=== PATIENT | female | born 1955 | race Two or more races ===

== ENCOUNTER 2017-03-31 11:26 | Emergency (ER) | payer OTHER ==
[~2017-03-31] VITALS: Ht 147.3 cm; Wt 78.9 kg
[~2017-03-31 11:26] MED LIST: AMOX500C2 PO; HYDR200T4 PO; LEFL20TA PO; METF500T4 PO
--- NOTE | 2017-03-31 12:47 | NUR ---
DR CORONEL ON PHONE WITH OPTHO
--- NOTE | 2017-03-31 12:51 | NUR ---
PAGED DR ZULUAGA
--- NOTE | 2017-03-31 13:04 | NUR ---
DR CORONEL ON PHONE WITH DR ZULUAGA
[2017-03-31 13:30] VITALS: BP 132/80
--- NOTE | 2017-03-31 13:31 | NUR ---
Patient discharged to home in stable condition. Written and verbal after care instructions given. Patient verbalizes understanding of instruction.
--- NOTE | 2017-03-31 13:32 | NUR ---
PRESENTS SELF TO ED BLURRED VISSION. PATIENT ON CORRECTIVE LENSES, HOWEVER PT REPORTED HAVING DARK VISION WELL. MD CORONEL AT BS
== END 2017-03-31 13:32 | disposition home or self-care (01) ==
LOC: ER 11:28
DX: H54.0 Blindness, both eyes (principal); E11.9 Type 2 diabetes mellitus without complications; M06.9 Rheumatoid arthritis, unspecified
CPT/HCPCS: 99281; A4606; Z7610; Z7502

== ENCOUNTER → 2017-04-20 | Emergency (ER) | payer OTHER ==
[~2017-04-20] VITALS: Ht 154.9 cm; Wt 79.4 kg
[~2017-04-20] MED LIST changes: +KETOROLAC TROMETHAMINE INJ 30 MG/ML VIAL ONE; +KETOROLAC TROMETHAMINE INJ 60 MG/2 ML VIAL IM ONE
[2017-04-20 18:16] VITALS: BP 140/81
== END | disposition home or self-care (01) ==
LOC: ER 18:21
DX: S16.1XXA Strain of muscle, fascia and tendon at neck level, initial encounter (principal); M62.838 Other muscle spasm; R51 Headache; E11.9 Type 2 diabetes mellitus without complications; V43.52XA Car driver injured in collision with other type car in traffic accident, initial encounter; Y93.89 Activity, other specified; Y92.488 Other paved roadways as the place of occurrence of the external cause; Y99.8 Other external cause status
CPT/HCPCS: A4606; J1885; Z7610

== ENCOUNTER 2017-06-28 10:23 | Emergency (ER) | payer OTHER ==
[~2017-06-28] VITALS: Ht 152.4 cm; Wt 79.4 kg
[~2017-06-28 10:23] MED LIST changes: -KETOROLAC TROMETHAMINE INJ 30 MG/ML VIAL ONE; -KETOROLAC TROMETHAMINE INJ 60 MG/2 ML VIAL IM ONE
--- NOTE | 2017-06-28 10:24 | NUR ---
PRESENTS SELF TO ED DT CHEST PAIN, ACHING, PRESSURE LIKE PAIN, 5/10, NON RADIATING SINCE THIS AM. PATIENT IS AAO4. APPEARS IN NO APPARENT DISTRESS. RESPIRATION EVEN AND UNLABORED. SKIN IS WARM TO TOUCH AND NON DIAPHORETIC. AFEBRILE. VSS. GOWNED PT AND PLACED ON TELE MONITOR. VSS
--- NOTE | 2017-06-28 10:46 | NUR ---
IV ACCESSED TO LAC 20. BLOOD SAMPLE SENT
[2017-06-28 10:53] LABS: BASOPHILS % (AUTO) 0.3 % (0.0-2.0); EOSINOPHILS # (AUTO) 0.1 /CMM (0.0-0.7); EOSINOPHILS % (AUTO) 1.3 % (0.0-6.0); HEMATOCRIT 38 % (33-45); HEMOGLOBIN 12.6 g/dL (11.5-14.8); LYMPHOCYTES # (AUTO) 0.8 /CMM (0.8-4.8); LYMPHOCYTES % (AUTO) 14.7 % (20.0-44.0); MEAN CORPUSCULAR HEMOGLOBIN 29 PG (26.0-33.0); MEAN CORPUSCULAR HGB CONC 33 g/dl (31.0-36.0); MEAN CORPUSCULAR VOLUME 86 fL (82-100); MONOCYTES # (AUTO) 0.4 /CMM (0.1-1.30); MONOCYTES % (AUTO) 6.1 % (2.0-12.0); NEUTROPHILS # (AUTO) 4.5 /CMM (1.8-8.9); NEUTROPHILS % (AUTO) 77.6 % (43.0-81.0); PLATELET COUNT (AUTO) 153 /CMM (150-450); RDW COEFFICIENT OF VARIATION 13.5 (11.5-15.0); RED BLOOD CELL COUNT(AUTO) 4.37 MIL/uL (4.0-5.2); WHITE BLOOD COUNT (AUTO) 5.7 K/uL (4.3-11.0)
[2017-06-28 11:05] LABS: CALCIUM, SERUM 8.9 mg/dL (8.5-10.1); CARBON DIOXIDE 27 mmol/L (21-32); CHLORIDE 107 mmol/L (98-107); CREATININE 0.6 mg/dL (0.6-1.3); GLUCOSE 146 mg/dL (74-106); SODIUM SERUM 143 mmol/L (136-145); UREA NITROGEN, BLOOD 13 mg/dL (7-18)
[2017-06-28 11:08] LABS: INR 0.95 (0.87-1.13); PROTHROMBIN TIME 10.1 SECS (9.5-12.7)
[2017-06-28 11:14] LABS: TROPONIN I < 0.017 ng/mL (0.00-0.056)
[2017-06-28 12:05] VITALS: BP 120/79
--- NOTE | 2017-06-28 12:05 | NUR ---
Patient discharged to home in stable condition. Written and verbal after care instructions given. Patient verbalizes understanding of instruction.
--- NOTE | 2017-06-28 12:05 | NUR ---
IV removed. Catheter intact and site benign. Pressure and 4x4 applied to site. No bleeding noted.Patient discharged to home in stable condition. Written and verbal after care instructions given. Patient verbalizes understanding of instruction.
== END 2017-06-28 12:07 | disposition home or self-care (01) ==
LOC: ER 10:24
DX: F41.9 Anxiety disorder, unspecified (principal); E11.9 Type 2 diabetes mellitus without complications; I10 Essential (primary) hypertension; M06.9 Rheumatoid arthritis, unspecified
CPT/HCPCS: 36415; 71010-TC; 80048-TC; 84484-TC; 85025-TC; 85730-TC; A4606; Z7610